=== PATIENT | female | born 1970 | race Two or more races ===

== ENCOUNTER 2025-09-16 09:30 | Emergency (ER) | payer MEDICAID, SELFPAY ==
[2025-09-16 10:02] VITALS: BP 137/82; PULSE 86; RESP 18; TEMP 37.1; O2SAT 100
[2025-09-16 10:03] VITALS: BMI 31.2
[2025-09-16 10:06] VITALS: PULSE 79
--- NOTE | 2025-09-16 10:06 | XR_ITS ---
Examination: CT abdomen and pelvis without contrast. Coronal 3-D reconstructions. Sagittal 2-D reconstructions. Date and time of exam: September 16, 2025, 1054 hours COMPARISON: May 14, 2020 INDICATIONS: Generalized abdominal pain today CTDI: vol (mGy): 12 DLP: (mGycm): 655 Technique: Axial images of the abdomen have been obtained, 3 mm slice thickness Intravenous contrast material has not been administered. Low dose protocols were performed. One or more of the following dose reduction techniques were used; automated exposure control, adjustment of the mA and/or KV according to patient size, use of iterative reconstruction technique. Findings: No visualized liver or splenic lesion Absent gallbladder Common bile duct 8 mm no stones No pancreatic mass Minimal nodular thickening left adrenal gland Mild renal scar formation, no renal or ureteral calculi, no hydronephrosis Aorta normal size No bowel obstruction Normal appendix No diverticulitis Scattered colonic diverticulosis Absent uterus Contracted urinary bladder Advanced degenerative disc disease L5-S1 L4-L5 moderate overall spinal stenosis, 8 mm central lumbar disc bulge, facet arthropathy thickening of ligamentum flavum, moderate bilateral L4 ganglionic compression IMPRESSION: Common bile duct 8 mm no definite stones, consider hepatobiliary sonography follow-up Mild renal scar formation Normal appendix Colonic diverticulosis, no diverticulitis Advanced degenerative disc disease L5-S1 L4-L5 moderate overall spinal stenosis including moderate bilateral L4 ganglionic compression
[2025-09-16 10:47] LABS: Basophils # (Auto) 0.1 Thou/mm3 (0.0-0.2); Basophils % (Auto) 1 % (0-2.5); Eosinophils # (Auto) 0.3 Thou/mm3 (0.0-0.5); Eosinophils % (Auto) 3 % (0-10); Hematocrit 31.6 % (36.0-46.0); Hemoglobin 10.3 g/dL (12.0-16.0); Immature Granulocytes Auto 0.04 Thou/mm3 (0.00-0.00); Lymphocytes # (Auto) 1.8 Thou/mm3 (1.0-4.8); Lymphocytes % (Auto) 22 % (10-50); Mean Corpuscular HGB Conc 32.6 g/dl (31.0-37.0); Mean Corpuscular Hemoglobin 27.5 pg (25.0-35.0); Mean Corpuscular Volume 84 fL (80-100); Monocytes # (Auto) 0.5 Thou/mm3 (0.0-0.8); Monocytes % (Auto) 6 % (0-12); Neutrophils # (Auto) 5.5 Thou/mm3 (1.8-7.7); Neutrophils % (Auto) 67 % (37-80); Nucleated Red Blood Cell # 0.00 Thou/mm3 (0.00-0.00); Nucleated Red Blood Cell % 0 /100 WBC (0); Platelet Count 265 Thou/mm3 (140-440); RDW Standard Deviation 42.0 fL (36.4-46.3); Red Blood Count 3.75 Miln/mm3 (4.00-5.20); White Blood Count 8.2 Thou/mm3 (3.6-11.0)
[2025-09-16 10:56] LABS: Collection Type, Urine Clean Catch; Squamous Epithelial Cell,Urine 0 /hpf (0-5)
[2025-09-16 11:05] LABS: INR 1.0 (0.9-1.3); Prothrombin Time 10.3 Seconds (9.0-12.2)
[2025-09-16 11:08] LABS: Bilirubin,Urine Negative (Negative); Blood,Urine Negative (Negative); Clarity,Urine Clear (Clear/Hazy); Color,Urine Lt-Yellow (Lt Yel-Yel); Glucose, Urine 4+ (Negative); Ketones,Urine Negative (Negative); Leukocyte Esterase,Urine Negative (Negative); Nitrite,Urine Negative (Negative); PH,Urine 6.5 (5.0-7.0); Protein,Urine Negative (Neg - Trace); RBC,Urine 2 /hpf (0-3); Specific Gravity,Urine 1.023 (1.001-1.035); Urobilinogen,Urine Negative mg/dL (0.0-1.0); WBC,Urine 2 /hpf (0-5)
[2025-09-16 11:09] LABS: Alanine Aminotransferase 15 U/L (10-49); Albumin, Serum 3.9 gm/dL (3.5-5.0); Albumin/Globulin Ratio 1.2 (1.2-2.2); Alkaline Phosphatase 130 U/L (46-116); Anion Gap 10 (7-16); Aspartate Amino Transferase 19 U/L (0-34); BUN/Creatinine Ratio 21 Ratio (12-20); Bilirubin,Total 0.2 mg/dL (0.3-1.2); Blood Urea Nitrogen 21 mg/dL (9-23); Calcium 8.9 mg/dL (8.3-10.6); Calcium (Corrected) 9.0 mg/dL (8.5-10.1); Carbon Dioxide 24.5 mMol/L (20.0-31.0); Chloride 108 mMol/L (98-107); Creatinine (Component) 1.0 mg/dL (0.6-1.3); Estimated Creatinine Clearance 65.3 mL/min (>60); Globulin 3.2 gm/dL (2.3-3.5); Glucose 313 mg/dL (74-106); Lipase 51 U/L (12-53); Magnesium 1.6 mg/dL (1.6-2.6); Osmolality,Calculated 298 (275-295); Potassium 4.1 mMol/L (3.4-5.1); Sodium 142 mMol/L (136-145); Total Protein 7.1 gm/dL (5.7-8.2); eGFR > 60 See Note
[2025-09-16] MEDS: SODIUM CHLORIDE 0.9% 1000 ML 1,000 ML 999 ML IV (11:35)
[2025-09-16 12:34] VITALS: BP 129/87; PULSE 62; RESP 17; TEMP 37.1; O2SAT 100
[2025-09-16 14:07] VITALS: BP 157/100; PULSE 73; RESP 16; TEMP 36.8; O2SAT 99
--- NOTE | 2025-09-16 15:32 | PD.EDABDPN ---
ED Abdominal Pain RME/HPI General Chief Complaint: Abdominal Pain Stated complaint: ABD PAIN Time seen by provider: 09/16/25 10:04 Arrival date/time: 09/16/25 09:30 Limitations: no limitations RME / HPI RME / HPI narrative: 54 year old female with history of hypertension, diabetes presents to the ED for evaluation of abdominal pain today. Pain described as aching in sensation that is located most to her upper abdomen, without radiation, rating 8/10 in severity. Accompanied by nausea and nonbloody nonbilious vomiting. Patient additionally complains of a dry nonproductive cough. Denies fevers, chills, sweats, chest pain, shortness of breath, diarrhea, constipation, or urinary symptoms. No known modifying factors at home. Related Data Home Medications ?Medication ?Instructions ?Recorded ?Confirmed albuterol sulfate 90 mcg/actuation 2 puff inhalation Q4H PRN 10/30/17 04/07/21 aerosol inhaler Shortness Of Breath Or Wheezing simvastatin 10 mg tablet 10 mg PO QPM 10/30/17 04/07/21 hydrochlorothiazide 25 mg tablet 25 mg PO QDAY 12/09/18 04/07/21 benazepril 20 mg tablet (Lotensin) 20 mg PO QDAY 03/10/19 04/07/21 alogliptin 25 mg tablet 25 mg PO QDAY 05/14/20 04/07/21 multivit with minerals-iron 18 1 tab PO QDAY 05/14/20 04/07/21 mg-folic ac 400 mcg-vit K 25 mcg tablet (One Daily Women's) blood sugar diagnostic (FreeStyle 04/07/21 04/07/21 Lite Strips) metformin 1,000 mg tablet 1,000 mg PO BID 04/07/21 04/07/21 omeprazole 40 mg capsule,delayed 40 mg PO QDAY 04/07/21 04/07/21 release ropinirole 2 mg tablet 2 mg PO TID 04/07/21 04/07/21 sucralfate 1 gram tablet 1 g PO BID 04/07/21 04/07/21 Previous Rx's ?Medication ?Instructions ?Recorded ibuprofen 800 mg tablet 800 mg PO TID PRN pain #30 tabs 04/07/21 dicyclomine 20 mg tablet 20 mg PO TID PRN abdominal pain 11/28/23 #30 tabs Allergies Allergy/AdvReac Type Severity Reaction Status Date / Time walnut Allergy Severe Rash Verified 09/16/25 09:32 amoxicillin Allergy Intermediate RASH Verified 09/16/25 09:32 hydrocodone Allergy Intermediate RASH Verified 09/16/25 09:32 pecan nut Allergy Intermediate Swelling Verified 09/16/25 09:32 of Lip/Tongue/Throat Penicillins Allergy Rash Verified 09/16/25 09:32 Review of Systems Review of Systems Systems Reviewed: All systems reviewed, normal except as documented Past Medical History Past Medical History NEUROLOGIC: Positive Neurological Disorders and Migraine CARDIAC: Positive Cardiac Disorders, Hypercholesterolemia, Hypertension and Hypotension RESPIRATORY: Positive Respiratory Disorders and Asthma GASTROINTESTINAL: Positive Gastrointestinal Disorders, Gall Bladder Disease, Gastroesophageal Reflux Disease and Obesity REPRODUCTIVE: Positive Pelvic Inflammatory Disease and Previous Pregnancies MUSCULOSKELETAL: Positive Musculoskeletal Disorders and Arthritis ENDOCRINE: Positive Endocrine Disorders and Diabetes Mellitus Type 2 HEMATOLOGIC: Positive Blood Disorders and Anemia PSYCHO/SOCIAL: Positive Depression and Anxiety OTHER HISTORY: Positive Chicken Pox Family History FAMILY HISTORY: Positive Family Cardiac Disorders Surgical History SURGICAL: Positive Hysterectomy, Tubal Ligation and Section Social History SMOKING STATUS: Current every day smoker SECOND HAND EXPOSURE: Yes (son Charlie) ED Exam General Limitations: Present no limitations General appearance: Present alert and in no apparent distress Head Head exam: Present atraumatic, normocephalic and normal inspection Eye Eye exam: Present normal appearance, PERRL and EOMI ENT ENT exam: Present normal exam, normal oropharynx and mucous membranes moist Neck Neck exam: Present normal inspection, full ROM and trachea midline Chest Chest inspection: Present normal inspection and symmetric chest wall rise Respiratory Respiratory exam: Present normal lung sounds bilaterally Cardiovascular Cardiovascular exam: Present regular rate, normal rhythm and normal heart sounds Abdominal Exam Abdominal exam: Present soft, tenderness (minimal tenderness to the upper quadrants) and normal bowel sounds; Absent distention, guarding, rebound or rigidity Extremities Exam Extremities exam: Present normal inspection and full ROM Back Exam Back exam: Present normal inspection and full ROM Neurological Exam Neurological exam: Present alert, oriented X3 and CN II-XII intact Psychiatric Psychiatric exam: Present normal affect and normal mood Skin Skin exam: Present warm, dry, intact and normal color Course Quality Measures none Orders Category Date Time Status Kiln Tester STAT Care 09/16/25 10:06 Completed Continuous Pulse Oximetry STAT Care 09/16/25 10:06 Completed Insert IV STAT Care 09/16/25 10:06 Completed NPO STAT Care 09/16/25 10:[address] abdomen pelvis wo con Stat Exams 09/16/25 10:06 Completed CBC Stat Lab 09/16/25 10:39 Completed Comprehensive Metabolic Panel Stat Lab 09/16/25 10:39 Completed Lipase Stat Lab 09/16/25 10:39 Completed Magnesium Stat Lab 09/16/25 10:39 Completed Prothrombin Time with INR Stat Lab 09/16/25 10:39 Completed Urinalysis Stat Lab 09/16/25 10:35 Completed Pantoprazole Inj [Protonix Inj] Med 09/16/25 10:06 Discontinued 40 mg IVP X1 ONE Pantoprazole Inj [Protonix Inj] Med 09/16/25 10:29 Discontinued 80 mg IVP X1 ONE Sodium Chloride 0.9% 1000 ml [Ns] 1,000 ml Med 09/16/25 10:06 Discontinued IV 999 mls/hr Vital Signs Vital signs: Vital Signs Temperature 98.8 F 09/16/25 10:02 Pulse Rate 86 09/16/25 10:02 Respiratory Rate 18 09/16/25 10:02 Blood Pressure 137/82 H 09/16/25 10:02 Pulse Oximetry (%) 100 09/16/25 10:02 Oxygen Delivery Method Room Air 09/16/25 10:02 Pulse ox is 100% on room air which is adequate. Abdominal Pain MDM MDM Narrative MDM Narrative:: Pat Vogel am scribing for and in the presence of Dr. Sotomayor. Patient remains clinically stable throughout the emergency department visit/. We reviewed all the results, analysis, and treatment plans. Patient is amenable to discharge. Strict return precautions were outlined. Patient data External records reviewed:: [facility] previous records Clinical information provided by:: patient Social determinants that could affect healthcare access:: none Patient has the following chronic illnesses:: hypertension, diabetes How is presenting disease/condition affected by chronic disease/condition?: uneffected by Evaluation data The following diagnostics were reviewed and interpreted by me:: lab results and radiology exam(s) Lab and/or radiology exams considered but not ordered:: None Interpretation Summary: Ordering Physician: Cole Sotomayor MD Date of Service: 09/16/25 Procedure(s): CT abdomen pelvis wo con Accession Number(s): [id number] cc: Cole Sotomayor MD; Lan Chicas MD; Dylan Mcguire MD~ Examination: CT abdomen and pelvis without contrast. Coronal 3-D reconstructions. Sagittal 2-D reconstructions. Date and time of exam: September 16, 2025, 1054 hours COMPARISON: May 14, 2020 INDICATIONS: Generalized abdominal pain today CTDI: vol (mGy): 12 DLP: (mGycm): 655 Technique: Axial images of the abdomen have been obtained, 3 mm slice thickness Intravenous contrast material has not been administered. Low dose protocols were performed. One or more of the following dose reduction techniques were used; automated exposure control, adjustment of the mA and/or KV according to patient size, use of iterative reconstruction technique. Findings: No visualized liver or splenic lesion Absent gallbladder Common bile duct 8 mm no stones No pancreatic mass Minimal nodular thickening left adrenal gland Mild renal scar formation, no renal or ureteral calculi, no hydronephrosis Aorta normal size No bowel obstruction Normal appendix No diverticulitis Scattered colonic diverticulosis Absent uterus Contracted urinary bladder Advanced degenerative disc disease L5-S1 L4-L5 moderate overall spinal stenosis, 8 mm central lumbar disc bulge, facet arthropathy thickening of ligamentum flavum, moderate bilateral L4 ganglionic compression IMPRESSION: Common bile duct 8 mm no definite stones, consider hepatobiliary sonography follow-up Mild renal scar formation Normal appendix Colonic diverticulosis, no diverticulitis Advanced degenerative disc disease L5-S1 L4-L5 moderate overall spinal stenosis including moderate bilateral L4 ganglionic compression Dictated By: Dylan Mcguire MD Signed By: <Electronically signed by Dylan Mcguire MD in OV> 09/16/25 1124 Medications / Prescriptions Medications or Prescriptions considered but not ordered:: None Medication administrations:: Medication Administration History Discontinued Medications Sodium Chloride (Ns) 1,000 mls @ 999 mls/hr IV .Q1H1M ONE Stop: 09/16/25 11:06 Last Admin: 09/16/25 11:35 Dose: 999 mls/hr Documented By: CARLO Pantoprazole Sodium (Pantoprazole Inj 40 Mg Vial) 40 mg IVP X1 ONE Stop: 09/16/25 10:07 Last Admin: 09/16/25 10:45 Dose: Not Given Documented By: CARLO Non-Admin Reason: Cancelled by Provider Pantoprazole Sodium (Pantoprazole Inj 40 Mg Vial) 80 mg IVP X1 ONE Stop: 09/16/25 10:30 Last Admin: 09/16/25 11:34 Dose: 80 mg Documented By: CARLO See above Consultations Consultation(s) initiated? (list below): No Diagnosis Differential diagnosis abdominal pain: abdominal pain, calculus of kidney and constipation Most likely diagnosis given after review of the tests above:: Gastritis Common bile duct dilation Diabetes Admission Indicated Admission indicated?: not indicated Admission Request Was there a request for admission?: No Disposition Plan Disposition Plan: Discharge Discharge Attestation Discharge Attestation: The patient and all family members were given an opportunity to ask questions and understood the discharge instructions. Discharge instructions specifically effects, indications for sooner follow up or return to the emergency department, and the expected course of current diagnosis. Patient condition: Stable Discharge Plan Plan Patient Disposition: HOME (Self Care) Patient condition on transfer: Stable Prescriptions/Referrals Prescriptions/Med Rec: No Action simvastatin 10 mg Tablet 10 mg PO QPM albuterol sulfate 90 mcg/actuation Hfa Aerosol Inhaler 2 puff Inhalation Q4H PRN (Reason: Shortness Of Breath Or Wheezing) hydrochlorothiazide 25 mg Tablet 25 mg PO QDAY sucralfate 1 gram Tablet 1 g PO BID metformin 1,000 mg Tablet 1,000 mg PO BID (DME) FreeStyle Lite Strips Strip Rx Instructions: TEST DAILY IN THE AM omeprazole 40 mg Capsule,Delayed Release(Dr/Ec) 40 mg PO QDAY ropinirole [Requip] 2 mg Tablet 2 mg PO TID ibuprofen 800 mg tablet 800 mg PO TID PRN (Reason: pain) Qty: 30 0RF benazepril [Lotensin] 20 mg Tablet 20 mg PO QDAY alogliptin 25 mg Tablet 25 mg PO QDAY One Daily Women's 18 mg iron-400 mcg-25 mcg Tablet 1 tab PO QDAY dicyclomine 20 mg tablet 20 mg PO TID PRN (Reason: abdominal pain) Qty: 30 0RF Referrals: Lan Chicas MD [Primary Care Provider, Family Practice] - In 1 week Problem List Clinical Impression: Gastritis, Common bile duct dilation, Diabetes mellitus Patient/Caregiver Discharge Instructions Discharge Activity: activity as tolerated Education Materials: Understanding Type 2 Diabetes, ED Gastritis (Adult) Additional Instructions: Follow-up with your primary doctor in 2 to 3 days. Please have your primary doctor consider hepatobiliary sonography follow-up. Print Language: Faroese Stand Alone Forms: Danay Martinez Info., Patient Portal Info Letter
== END 2025-09-16 14:12 | disposition home or self-care (01) ==
PROVIDERS: Emergency Provider Family Medicine; PCP Family Medicine
DX: K29.70 Gastritis, unspecified, without bleeding (principal); K83.8 Other specified diseases of biliary tract; K57.30 Diverticulosis of large intestine without perforation or abscess without bleeding; E11.9 Type 2 diabetes mellitus without complications; I10 Essential (primary) hypertension; M51.379 Other intervertebral disc degeneration, lumbosacral region without mention of lumbar back pain or lower extremity pain; M48.061 Spinal stenosis, lumbar region without neurogenic claudication; G95.29 Other cord compression
CPT/HCPCS: 36415; 74176; 80053; 81001; 83690; 83735; 85025; 85610; 96374; 99284; J2470; J7030